=== PATIENT | female | born 1985 | race Caucasian/White ===

== ENCOUNTER → 2025-08-05 14:11 | Outpatient (CLI) | payer OTHER, SELFPAY ==
--- NOTE | 2025-08-05 14:23 | DI.RAD.S_ITS ---
PROCEDURE: XR CERVICAL SPINE 4V OR 5V INDICATIONS: NECK PAIN TECHNIQUE: 5 views of the cervical spine acquired. COMPARISON: None. FINDINGS: Bones: No fractures or dislocations to the T1 level. Moderate bony neural foraminal stenosis on the right at C5-6 and mild bony neural foraminal stenosis on the left at C6-7. Soft tissues: No prevertebral soft tissue swelling. IMPRESSION: Moderate bony neural foraminal stenosis on the right at C5-6 and mild on the left at C6-7. Consider further evaluation with MRI cervical spine Dictated by: Vitor Quezada M.D. on 08/05/2025 at 15:56 Approved by: Vitor Quezada M.D. on 08/05/2025 at 15:57
== END ==
PROVIDERS: Family Provider Family Medicine; PCP Nurse Practitioner Family; Referring Provider Nurse Practitioner Family; Visit Provider Nurse Practitioner Family
DX: S19.9XXA Unspecified injury of neck, initial encounter (principal); M48.02 Spinal stenosis, cervical region; V89.2XXA Person injured in unspecified motor-vehicle accident, traffic, initial encounter
CPT/HCPCS: 72050

== ENCOUNTER → 2025-09-10 11:28 | Outpatient (CLI) | payer OTHER, SELFPAY ==
--- NOTE | 2025-09-10 11:36 | DI.RAD.S_ITS ---
PROCEDURE: XR LUMBAR SPINE 2-3V INDICATIONS: L SPINE PAIN TECHNIQUE: 3 views of the lumbar spine were acquired. COMPARISON: None. FINDINGS: Lumbar spine curvature and alignment: Normal. S1-2 disc space is partially developed Bones: There are no osseous abnormalities. Disc spaces: Mild L5-S1 degenerative disc facet disease Intervertebral foramen: Grossly normal in width. Soft tissues: No soft tissue swelling, calcification or mass. IMPRESSION: Mild L5-S1 degenerative disc and facet disease. Partial development S1-2 disc. Dictated by: Tony Apple M.D. on 09/11/2025 at 13:02 Approved by: Tony Apple M.D. on 09/11/2025 at 13:03
== END ==
PROVIDERS: PCP Nurse Practitioner Family; Referring Provider Nurse Practitioner Family; Visit Provider Nurse Practitioner Family
DX: G89.29 Other chronic pain (principal); M54.41 Lumbago with sciatica, right side; M51.379 Other intervertebral disc degeneration, lumbosacral region without mention of lumbar back pain or lower extremity pain; M47.817 Spondylosis without myelopathy or radiculopathy, lumbosacral region
CPT/HCPCS: 72100